=== PATIENT | female | born 1990 | race Two or more races ===

== ENCOUNTER 2022-06-18 20:00 | Emergency (ER) | payer OTHER ==
[~2022-06-18] VITALS: Ht 157.5 cm; Wt 58.1 kg
== END 2022-06-18 22:22 | disposition home or self-care (01) ==
LOC: ER 20:00
DX: M25.512 Pain in left shoulder (principal)

== ENCOUNTER 2024-03-11 07:43 | Emergency (ER) | payer OTHER ==
[~2024-03-11] VITALS: Ht 157.5 cm; Wt 59.9 kg
[2024-03-11 07:58] VITALS: BP 113/78; O2SAT 99
[2024-03-11] MEDS ORDERED: GUAIFENESIN/DEXTROMETHORPHAN 10ML BLIST.PACK PO ONE (09:00)
[2024-03-11] MEDS ORDERED: DEXAMETHASONE SODIUM PHOSPHATE 4 MG/ML VIAL IM ONE (09:00)
[2024-03-11 10:01] LABS: HEMATOCRIT 39.5 % (36.0-45.00); HEMOGLOBIN 13.3 g/dL (12.0-15.00); MEAN CELL VOLUME 84.3 fL (80.00-100.00); MEAN CORPUSCULAR HEMOGLOBIN 28.5 pg (27.00-32.0); MEAN CORPUSCULAR HGB CONC 33.8 g/dl (32.0-36.0); PLATELET COUNT 275 K/uL (150-450); RED BLOOD COUNT 4.69 M/uL (4.00-6.00); RED CELL DISTRIBUTION WIDTH 13.3 % (11.5-14.5)
[2024-03-11] MEDS ORDERED: TUSNEL LIQUID178 ML PO (10:31)
[2024-03-11] MEDS ORDERED: OSEL75CA PO (10:31)
[2024-03-11] MEDS ORDERED: ZYRTEC10 MG PO (10:31)
== END 2024-03-11 10:35 | disposition home or self-care (01) ==
LOC: ER 07:45
PROVIDERS: General Practice
DX: J10.1 Influenza due to other identified influenza virus with other respiratory manifestations (principal); Z20.822 Contact with and (suspected) exposure to COVID-19

== ENCOUNTER → 2025-01-13 07:31 | Outpatient (CLI) | payer OTHER ==
[~2025-01-13 07:31] MED LIST: AUGMENTIN125 MG/5 M PO; OSEL75CA PO; PEPCID AC20 MG PO; PROBIOTIC1 EAC2 PO; TUSNEL LIQUID178 ML PO; ZITHROMAX500 MG PO; ZYRTEC10 MG PO
[2025-01-13 08:46] LABS: BASO % 0.7 % (0.1-1.2); EOS # 0.11 (0.04-0.54); EOS % 1.4 % (0.7-7.0); LYMPH # 1.36 (1.18-3.74); LYMPH % 17.7 % (19.3-53.1); MEAN PLATELET VOLUME 11.30 fl (9.4-12.4); MONO # 0.55 (0.24-0.82); MONO % 7.2 % (4.7-12.5); NEUT # 5.58 (1.56-6.13); NEUT % 72.7 % (34.0-71.1); RED CELL DISTRIBUTION WIDTH 12.7 % (11.6-14.4)
[2025-01-13 08:57] LABS: URINE APPEARANCE Clear; URINE BACTERIA 17.9 uL (0.0-1933); URINE BILIRRUBIN Negative (NEGATIVE); URINE BLOOD Negative; URINE COLOR Yellow; URINE EPITHELIAL CELLS 20.8 uL (0.0-38.8); URINE GLUCOSE Negative (NEGATIVE); URINE KETONE Negative (NEGATIVE); URINE LEUKOCYTE Negative; URINE NITRATE Negative; URINE PROTEIN Negative (NEGATIVE); URINE RBC 9.3 uL (0.0-20.8); URINE UROBILINOGEN 0.2 E.U./dl
[2025-01-13 09:05] LABS: URINE CAST 0.00 uL (0.0-1.40); URINE WBC 1.6 uL (0.0-23.2)
[2025-01-13 09:52] LABS: ALT/SGPT 22.0 U/L (12-78); AST/SGOT 17.0 U/L (15-37); BILIRUBIN TOTAL 0.32 mg/dL (0.3-1.2); BUN CREA RATIO 11.0 (7.0-25.0); CHOL HDL RATIO 2.8 (0-5.0); CREATININE SERUM 0.7 mg/dL (0.55-1.02); GFR 95.22; GLOBULINA 3.5 G/DL (2.4-3.5); GLUCOSE FASTING 74.0 mg/dL (65-100); HDL 53.0 mg/dl (40-60); LDL 83.0 mg/dl (0-130); OSMOLALITY SERUM 278.0 MOSM/KG (275-295); T4 FREE 1.04 NG/ML (0.76-1.46); TSH 1.85 uIU/mL (0.358-3.74); VLDL 13.0 (0-39)
[2025-01-13 13:51] LABS: ob NEGATIVE (NEGATIVE)
== END | disposition home or self-care (01) ==
LOC: LAB 07:31
PROVIDERS: ATTEND Obstetrics & Gynecology
DX: E03.9 Hypothyroidism, unspecified (principal); E78.00 Pure hypercholesterolemia, unspecified; N39.0 Urinary tract infection, site not specified; Z11.4 Encounter for screening for human immunodeficiency virus [HIV]; Z12.11 Encounter for screening for malignant neoplasm of colon; Z00.00 Encounter for general adult medical examination without abnormal findings; E55.9 Vitamin D deficiency, unspecified; Z21 Asymptomatic human immunodeficiency virus [HIV] infection status; R79.9 Abnormal finding of blood chemistry, unspecified; R79.89 Other specified abnormal findings of blood chemistry

== ENCOUNTER 2025-01-13 08:20 | Outpatient (CLI) | payer OTHER ==
[~2025-01-13 08:20] MED LIST changes: -AUGMENTIN125 MG/5 M PO; -PEPCID AC20 MG PO; -PROBIOTIC1 EAC2 PO; -ZITHROMAX500 MG PO
[2025-01-14] MEDS ORDERED: AUGMENTIN125 MG/5 M PO (12:44)
[2025-01-14] MEDS ORDERED: ZITHROMAX500 MG PO (15:20)
[2025-01-14] MEDS ORDERED: PROBIOTIC1 EAC2 PO (15:20)
[2025-01-14] MEDS ORDERED: PEPCID AC20 MG PO (15:20)
== END 2025-01-13 08:29 | disposition home or self-care (01) ==
LOC: MAMO-SONO 08:20
PROVIDERS: ATTEND Obstetrics & Gynecology
DX: N63 Unspecified lump in breast (principal); N64.59 Other signs and symptoms in breast; N64.9 Disorder of breast, unspecified; N94.0 Mittelschmerz; R10.20 Pelvic and perineal pain unspecified side; N94.89 Other specified conditions associated with female genital organs and menstrual cycle

== ENCOUNTER 2025-01-14 10:57 | Emergency (ER) | payer OTHER ==
[~2025-01-14] VITALS: Ht 157.5 cm; Wt 54.9 kg
[2025-01-14] MEDS ORDERED: AUGMENTIN125 MG/5 M PO (12:44)
[2025-01-14] MEDS ORDERED: ONDANSETRON HCL 2 MG/ML VIAL IV ONE (13:15)
[2025-01-14] MEDS ORDERED: FAMOtidine 10 MG/ML (4ML VIAL) IV PUSH ONE (13:15)
[2025-01-14] MEDS ORDERED: METHYLPREDNISOLONE SOD SUCC 125 MG VIAL IV ONE (13:15)
[2025-01-14] MEDS ORDERED: CEFTRIAXONE SODIUM 1,000 MG VIAL IV ONE (13:15)
[2025-01-14] MEDS ORDERED: CEFTRIAXONE SODIUM 1,000 MG VIAL ONE (13:19)
[2025-01-14] MEDS ORDERED: METHYLPREDNISOLONE SOD SUCC 125 MG VIAL ONE (13:19)
[2025-01-14] MEDS ORDERED: ONDANSETRON HCL 2 MG/ML VIAL ONE (13:19)
[2025-01-14] MEDS ORDERED: FAMOTIDINE/PF 20 MG/2 ML VIAL ONE (13:19)
[2025-01-14 14:15] LABS: BASO % 0.6 % (0.1-1.2); EOS # 0.17 (0.04-0.54); EOS % 2.1 % (0.7-7.0); LYMPH # 1.73 (1.18-3.74); LYMPH % 21.3 % (19.3-53.1); MEAN PLATELET VOLUME 10.30 fl (9.4-12.4); MONO # 0.65 (0.24-0.82); MONO % 8.0 % (4.7-12.5); NEUT # 5.53 (1.56-6.13); NEUT % 67.9 % (34.0-71.1); RED CELL DISTRIBUTION WIDTH 12.4 % (11.6-14.4)
[2025-01-14 14:49] LABS: COVID-19 AG NEGATIVE (NEGATIVE)
[2025-01-14 14:51] LABS: ALT/SGPT 23.0 U/L (12-78); AST/SGOT 12.0 U/L (15-37); BILIRUBIN TOTAL 0.23 mg/dL (0.3-1.2); BUN CREA RATIO 16.0 (7.0-25.0); CREATININE SERUM 0.67 mg/dL (0.55-1.02); GFR 100.16; GLOBULINA 3.9 G/DL (2.4-3.5); GLUCOSE FASTING 83.0 mg/dL (65-100); OSMOLALITY SERUM 280.0 MOSM/KG (275-295)
[2025-01-14] MEDS ORDERED: PROBIOTIC1 EAC2 PO (15:20)
[2025-01-14] MEDS ORDERED: ZITHROMAX500 MG PO (15:20)
[2025-01-14] MEDS ORDERED: PEPCID AC20 MG PO (15:20)
== END 2025-01-14 20:17 | disposition home or self-care (01) ==
LOC: ER 10:57
PROVIDERS: General Practice
DX: J02.9 Acute pharyngitis, unspecified (principal); R19.7 Diarrhea, unspecified; Z20.822 Contact with and (suspected) exposure to COVID-19